=== PATIENT | male | born 1940 | race Caucasian/White ===

== ENCOUNTER 2017-09-25 17:16 | Emergency (ER) | payer MEDICARE ==
[~2017-09-25] VITALS: Ht 172.7 cm; Wt 95.0 kg
[~2017-09-25 17:16] MED LIST: ALPR.25 PO; CALC625 PO; COUM2TAB PO; ENOX100P SQ; LIPI20TA PO; LOTR5CAP2 PO; NEXI20CA PO; VIAG50TA PO
[2017-09-25 17:23] VITALS: BP 180/81; PULSE 66; RESP 16; TEMP 98.3; O2SAT 100
[2017-09-25 18:20] LABS: AUTOMATED NEUTROPHIL # 7.4 TH/MM3 (1.8-7.7); BASOPHIL % 0.3 % (0.0-2.0); EOSINOPHIL % 0.3 % (0.0-4.0); HEMATOCRIT 40.7 % (39.0-51.0); HEMOGLOBIN 13.2 GM/DL (13.0-17.0); LYMPH % 11.6 % (9.0-44.0); LYMPHOCYTE # 1.1 TH/MM3 (1.0-4.8); MEAN CELL VOLUME 76.1 FL (80.0-100.0); MEAN CORPUSCULAR HEMOGLOBIN 24.7 PG (27.0-34.0); MEAN CORPUSCULAR HGB CONC 32.5 % (32.0-36.0); MEAN PLATELET VOLUME 7.6 FL (7.0-11.0); MONO % 10.3 % (0.0-8.0); NEUT % 77.5 % (16.0-70.0); PLATELET COUNT 229 TH/MM3 (150-450); RED BLOOD COUNT 5.35 MIL/MM3 (4.50-5.90); RED CELL DISTRIBUTION WIDTH 19.2 % (11.6-17.2); WHITE BLOOD COUNT 9.6 TH/MM3 (4.0-11.0)
[2017-09-25 18:34] LABS: AST (GOT) 20 U/L (15-37); BICARBONATE 27.5 MEQ/L (21.0-32.0); BLOOD UREA NITROGEN 14 MG/DL (7-18); CALCIUM 8.9 MG/DL (8.5-10.1); CHLORIDE 100 MEQ/L (98-107); GLOMERULAR FILTRATION RATE 73 ML/MIN (>89); GLUCOSE,RANDOM 96 MG/DL (74-106); SODIUM (NA) 135 MEQ/L (136-145)
[2017-09-25 18:37] LABS: INTERNATIONAL NORMALIZED RATIO 2.1 RATIO; PROTHROMBIN TIME - PATIENT 21.7 SEC (9.8-11.6)
[2017-09-25 18:39] LABS: ALKALINE PHOSPHATASE 83 U/L (45-117); ALT (GPT) 20 U/L (12-78); TOTAL BILIRUBIN ADULT 1.5 MG/DL (0.2-1.0); TROPONIN I LESS THAN 0.02 NG/ML (0.02-0.05)
--- NOTE | 2017-09-25 18:46 | PD ---
HPI Chief Complaint: Fall Time Seen by Provider: 17:27 Travel History International Travel<30 days: No Contact w/Intl Traveler<30days: No Traveled to known affect area: No History of Present Illness HPI Patient is a 77-year-old male who comes in complaining of headache after a fall a week ago. He says he missed the last step on a ladder and he fell, falling backwards and hitting his head. He says he broke the wall with small. He says he has been having headache on the left side of his head since then. He does take Coumadin. His is concerned because he has been very tired for the past week as well. He denies any chest pain or shortness of breath. He denies dizziness, blurred vision, nausea or vomiting. Severity is mild to moderate. PFSH Past Medical History Hx Anticoagulant Therapy: Yes (WARFARIN ) Arthritis: No Blood Disorders: No Heart Rhythm Problems: No Cancer: Yes (SKIN X 2) Cardiovascular Problems: Yes (CHF ) High Cholesterol: Yes Chemotherapy: No Chest Pain: No Congestive Heart Failure: No Cerebrovascular Accident: No Diabetes: No Diminished Hearing: No Endocrine: No Gastrointestinal Disorders: Yes (GERD, ULCER HX) GERD: Yes Genitourinary: No Hepatitis: No Hiatal Hernia: No Hypertension: Yes Immune Disorder: No Musculoskeletal: Yes (CHRONIC BACK MUSCLE PAIN) Neurologic: No Psychiatric: No Reproductive: No Respiratory: No Myocardial Infarction: No Radiation Therapy: No Thyroid Disease: No Ulcer: No Past Surgical History Abdominal Surgery: Yes (UMBILICAL HERNIA REPAIR) AICD: No Appendectomy: No Arteriovenous Shunt: No Body Medical Devices: MITRAL & AORTIC VALVES Cardiac Surgery: Yes (AVR, MVR) Cholecystectomy: No Ear Surgery: No Endocrine Surgery: No Eye Surgery: No Genitourinary Surgery: No Gynecologic Surgery: No Insulin Pump: No Joint Replacement: No Oral Surgery: No Pacemaker: Yes (PLACED 09/14/14) Thoracic Surgery: Yes (see above ) Valve Replacement: Yes (X2 [facility]) Other Surgery: Yes Social History Alcohol Use: Yes Tobacco Use: No Substance Use: No Allergies-Medications (Allergen,Severity, Reaction): Coded Allergies: No Known Allergies (Unverified , 09/14/14) Reported Meds & Prescriptions Reported Meds & Active Scripts Active Reported Lovenox (Enoxaparin Sodium) 100 Mg/Ml Inj 100 Mg SQ BID Xanax 0.25 Mg (Alprazolam) Alprazolam 0.25 mg Tab 1 Tab PO DAILY PRN Fiber Con (Calcium Polycarbophil) 625 Mg Tab 625 Mg PO BID Viagra (Sildenafil Citrate) 50 Mg Tab 50 Mg PO DIRECTED Nexium (Esomeprazole Magnesium) Esomeprazole Magnesium 20 mg Cap 20 Mg PO DAILY Lipitor 20 Mg Tab (Atorvastatin Calcium) 20 Mg Tab 1 Tab PO DAILY Lotrel 5-10 mg (Amlodipine/benazepril 5-10 mg) 5 Mg/10 Mg Cap 1 Cap PO HS Coumadin 2 mg (Warfarin Sodium) Warfarin Sodium 2 mg Tab 7 Mg PO DAILY@1600 Review of Systems Except as stated in HPI: all other systems reviewed are Neg General / Constitutional: No: Fever, Chills Eyes: No: Blurred Vision HENT: Positive: Headaches Cardiovascular: No: Chest Pain or Discomfort Respiratory: No: Shortness of Breath Gastrointestinal: No: Nausea, Vomiting Musculoskeletal: No: Myalgias, Edema Skin: No Change in Pigmentation Neurologic: No: Weakness, Dizziness Physical Exam Narrative GENERAL: Awake and alert, in no acute distress. SKIN: Focused skin assessment warm/dry. No wounds or signs of infection. HEAD: Atraumatic. Normocephalic. EYES: Pupils equal and round and reactive. No scleral icterus. Extraocular movements intact. ENT: Mucous membranes pink and moist. NECK: Trachea midline. No JVD. CARDIOVASCULAR: Regular rate and rhythm. No murmur appreciated. RESPIRATORY: No accessory muscle use. Clear to auscultation. Breath sounds equal bilaterally. GASTROINTESTINAL: Abdomen soft, non-tender, nondistended. MUSCULOSKELETAL: No obvious deformities. No clubbing. No cyanosis. No edema. Tenderness to palpation of the lumbar spine. NEUROLOGICAL: Awake and alert. No obvious cranial nerve deficits. Motor grossly within normal limits. Normal speech. PSYCHIATRIC: Appropriate mood and affect; insight and judgment normal. Data Data Last Documented VS Vital Signs Date Time Temp Pulse Resp B/P (MAP) Pulse Ox O2 Delivery O2 Flow Rate FiO2 09/25/17 21:25 09/25/17 19:01 63 15 97 Room Air 09/25/17 17:23 98.3 Orders Orders Iv Access Insert/Monitor (09/25/17 17:38) Complete Blood Count With Diff (09/25/17 17:38) Comprehensive Metabolic Panel (09/25/17 17:38) Act Partial Throm Time (Ptt) (09/25/17 17:38) Prothrombin Time / Inr (Pt) (09/25/17 17:38) Troponin I (09/25/17 17:38) Electrocardiogram (09/25/17 ) Ct Brain W/O Iv Contrast(Rout) (09/25/17 ) Spine, Lumbar Comp W/Obliq (09/25/17 ) Chest, Single Ap (09/25/17 ) Urinalysis - C+S If Indicated (09/25/17 19:30) Ct Cerv Spine W/O Contrast (09/25/17 ) Ed Discharge Order (09/25/17 21:09) Labs Laboratory Tests Test 09/25/17 17:45 09/25/17 19:47 White Blood Count 9.6 TH/MM3 Red Blood Count 5.35 MIL/MM3 Hemoglobin 13.2 GM/DL Hematocrit 40.7 % Mean Corpuscular Volume 76.1 FL Mean Corpuscular Hemoglobin 24.7 PG Mean Corpuscular Hemoglobin Concent 32.5 % Red Cell Distribution Width 19.2 % Platelet Count 229 TH/MM3 Mean Platelet Volume 7.6 FL Neutrophils (%) (Auto) 77.5 % Lymphocytes (%) (Auto) 11.6 % Monocytes (%) (Auto) 10.3 % Eosinophils (%) (Auto) 0.3 % Basophils (%) (Auto) 0.3 % Neutrophils # (Auto) 7.4 TH/MM3 Lymphocytes # (Auto) 1.1 TH/MM3 Monocytes # (Auto) 1.0 TH/MM3 Eosinophils # (Auto) 0.0 TH/MM3 Basophils # (Auto) 0.0 TH/MM3 CBC Comment DIFF FINAL Differential Comment Prothrombin Time 21.7 SEC Prothromb Time International Ratio 2.1 RATIO Activated Partial Thromboplast Time 39.9 SEC Blood Urea Nitrogen 14 MG/DL Creatinine 1.00 MG/DL Random Glucose 96 MG/DL Total Protein 8.0 GM/DL Albumin 4.0 GM/DL Calcium Level 8.9 MG/DL Alkaline Phosphatase 83 U/L Aspartate Amino Transf (AST/SGOT) 20 U/L Alanine Aminotransferase (ALT/SGPT) 20 U/L Total Bilirubin 1.5 MG/DL Sodium Level 135 MEQ/L Potassium Level 4.3 MEQ/L Chloride Level 100 MEQ/L Carbon Dioxide Level 27.5 MEQ/L Anion Gap 8 MEQ/L Estimat Glomerular Filtration Rate 73 ML/MIN Troponin I LESS THAN 0.02 NG/ML Urine Color YELLOW Urine Turbidity CLEAR Urine pH 5.5 Urine Specific [place] 1.019 Urine Protein NEG mg/dL Urine Glucose (UA) NEG mg/dL Urine Ketones NEG mg/dL Urine Occult Blood TRACE Urine Nitrite NEG Urine Bilirubin NEG Urine Urobilinogen LESS THAN 2.0 MG/DL Urine Leukocyte Esterase TRACE Urine RBC 1 /hpf Urine Mucus FEW /lpf Microscopic Urinalysis Comment CULT NOT INDICATED MDM Medical Decision Making Medical Screen Exam Complete: Yes Emergency Medical Condition: Yes Medical Record Reviewed: Yes Interpretation(s) ECG shows a paced rhythm. Differential Diagnosis ICH versus concussion versus electrolyte abnormality versus dehydration Narrative Course Patient is a 77-year-old male who comes in complaining of headache and fatigue after a fall a week ago. Exam shows no neurologic abnormalities. IV established, labs sent. Labs show no acute abnormalities. CT head, C-spine performed. Lumbar x-ray performed. Signed out to Dr. Brandon to follow up imaging and disposition the patient. Vane Miller MD Sep 25, 2017 18:46
[2017-09-25 19:00] VITALS: BP 168/72; PULSE 62; RESP 15; O2SAT 97
--- NOTE | 2017-09-25 19:07 | RADRPT ---
EXAM DATE/TIME: 09/25/2017 18:30 [facility] COMPARISON: No previous studies available for comparison. INDICATIONS : Patient fell off ladder , hit head. RADIATION DOSE: 47.97 CTDIvol (mGy) MEDICAL HISTORY : Cardiovascular disease. Hypertension. SURGICAL HISTORY : Pacemaker. ENCOUNTER: Initial ACUITY: 4 - 6 days PAIN SCALE: 5/10 LOCATION: cranial TECHNIQUE: Multiple contiguous axial images were obtained of the head. Using automated exposure control and adj ustment of the mA and/or kV according to patient size, radiation dose was kept as low as reasonably a chievable to obtain optimal diagnostic quality images. DICOM format image data is available electro nically for review and comparison. FINDINGS: CEREBRUM: The ventricles are normal for age. No evidence of midline shift, mass lesion, hemorrhage or acute in farction. No extra-axial fluid collections are seen. POSTERIOR FOSSA: The cerebellum and brainstem are intact. The 4th ventricle is midline. The cerebellopontine angle i s unremarkable. EXTRACRANIAL: The visualized portion of the orbits is intact. SKULL: The calvaria is intact. No evidence of skull fracture. CONCLUSION: No acute intracranial abnormalities. Retention cyst right maxillary sinus. Mauro Valverde MD on September 25, 2017 at 19:04 Board Certified Radiologist. This report was verified electronically.
--- NOTE | 2017-09-25 19:14 | RADRPT ---
EXAM DATE/TIME: 09/25/2017 18:06 [facility] COMPARISON: CHEST SINGLE AP, September 14, 2014, 17:23. INDICATIONS : Shortness of breath. MEDICAL HISTORY : None. SURGICAL HISTORY : CABG. ENCOUNTER: Initial ACUITY: 1 day PAIN SCORE: 0/10 LOCATION: Bilateral chest FINDINGS: A single view of the chest demonstrates postoperative median sternotomy and aortic valve replacement. Pacer lead overlies right ventricle. Minimal basal atelectasis. No effusion. No pneumothorax. CONCLUSION: Minimal basal atelectasis. Cardiomegaly status post aortic valve replacement. Mauro Valverde MD on September 25, 2017 at 19:11 Board Certified Radiologist. This report was verified electronically.
--- NOTE | 2017-09-25 19:15 | RADRPT ---
EXAM DATE/TIME: 09/25/2017 18:09 [facility] COMPARISON: No previous studies available for comparison. INDICATIONS : Pain post fall. MEDICAL HISTORY : None. SURGICAL HISTORY : None. ENCOUNTER: Initial ACUITY: 1 day PAIN SCORE: 10/10 LOCATION: Lower back. FINDINGS: There are five non-rib bearing vertebral bodies. The vertebral bodies are in normal alignment withou t evidence of subluxation or scoliosis. The disc spaces are maintained. The posterior elements are intact without evidence of spondylolysis. The pedicles are intact. Bony mineralization is normal. No fracture is identified. CONCLUSION: 1. Mild degenerative disc disease and facet arthropathy. No acute bony abnormality. Mauro Valverde MD on September 25, 2017 at 19:12 Board Certified Radiologist. This report was verified electronically.
[2017-09-25 20:11] LABS: BILIRUBIN, URINE NEG (NEG); BLOOD, URINE TRACE (NEG); GLUCOSE,URINE NEG (NEG); KETONE, URINE NEG (NEG); MUCUS URINE FEW /lpf (OCC); NITRITE,URINE NEG (NEG); PH, URINE 5.5 (5.0-8.5); URINE COLOR YELLOW (YELLW/STRAW); URINE LEUKOCYTE ESTERASE TRACE (NEG)
--- NOTE | 2017-09-25 20:33 | RADRPT ---
EXAM DATE/TIME: 09/25/2017 19:57 [facility] COMPARISON: No previous studies available for comparison. INDICATIONS : Patient fell off ladder, weakness bilateral arms. RADIATION DOSE: 22.81 CTDIvol (mGy) MEDICAL HISTORY : Cardiovascular disease. Hypertension. SURGICAL HISTORY : Pacemaker. ENCOUNTER: Initial ACUITY: 4 - 6 days PAIN SCALE: 5/10 LOCATION: neck TECHNIQUE: Volumetric scanning of the cervical spine was performed. Multiplanar reconstructions in the sagittal, coronal and oblique axial planes were performed. Using automated exposure control and adjustment o f the mA and/or kV according to patient size, radiation dose was kept as low as reasonably achievable to obtain optimal diagnostic quality images. DICOM format image data is available electronically f or review and comparison. FINDINGS: VERTEBRAE: Normal vertebral body height. ALIGNMENT: No evidence of subluxation. C2-C3: The bony spinal canal is normal in size. No evidence of disc bulge or herniation. The neural forami na are bilaterally patent. C3-C4: The bony spinal canal is normal in size. No evidence of disc bulge or herniation. The neural forami na are bilaterally patent. C4-C5: The bony spinal canal is normal in size. No evidence of disc bulge or herniation. The neural forami na are bilaterally patent. C5-C6: The bony spinal canal is normal in size. No evidence of disc bulge or herniation. The neural forami na are bilaterally patent. C6-C7: The bony spinal canal is normal in size. No evidence of disc bulge or herniation. The neural forami na are bilaterally patent. C7-T1: The bony spinal canal is normal in size. No evidence of disc bulge or herniation. The neural forami na are bilaterally patent. CONCLUSION: 1. No acute intracranial abnormalities. Moderate degenerative disc disease and facet arthropathy. Mauro Valverde MD on September 25, 2017 at 20:29 Board Certified Radiologist. This report was verified electronically.
--- NOTE | 2017-09-25 21:09 | PD ---
Physical Exam Date Seen by Provider: Sep 25, 2017 Time Seen by Provider: 19:30 Narrative [pt signed out to me to review CT head , Negativ e for bleed and no obvious contusion , CT cervical ordered to ruleout disc herniation causing his arm weakness bilateral , and UA to rule out infectious source for weakness, all are normal and pt ready for discharge to follow up as an outpt . Dr Chris num,lisbeth given to pt and Data Data Last Documented VS Vital Signs Date Time Temp Pulse Resp B/P (MAP) Pulse Ox O2 Delivery O2 Flow Rate FiO2 09/25/17 21:25 09/25/17 19:01 63 15 97 Room Air 09/25/17 17:23 98.3 Orders Orders Iv Access Insert/Monitor (09/25/17 17:38) Complete Blood Count With Diff (09/25/17 17:38) Comprehensive Metabolic Panel (09/25/17 17:38) Act Partial Throm Time (Ptt) (09/25/17 17:38) Prothrombin Time / Inr (Pt) (09/25/17 17:38) Troponin I (09/25/17 17:38) Electrocardiogram (09/25/17 ) Ct Brain W/O Iv Contrast(Rout) (09/25/17 ) Spine, Lumbar Comp W/Obliq (09/25/17 ) Chest, Single Ap (09/25/17 ) Urinalysis - C+S If Indicated (09/25/17 19:30) Ct Cerv Spine W/O Contrast (09/25/17 ) Ed Discharge Order (09/25/17 21:09) Labs Laboratory Tests Test 09/25/17 17:45 09/25/17 19:47 White Blood Count 9.6 TH/MM3 Red Blood Count 5.35 MIL/MM3 Hemoglobin 13.2 GM/DL Hematocrit 40.7 % Mean Corpuscular Volume 76.1 FL Mean Corpuscular Hemoglobin 24.7 PG Mean Corpuscular Hemoglobin Concent 32.5 % Red Cell Distribution Width 19.2 % Platelet Count 229 TH/MM3 Mean Platelet Volume 7.6 FL Neutrophils (%) (Auto) 77.5 % Lymphocytes (%) (Auto) 11.6 % Monocytes (%) (Auto) 10.3 % Eosinophils (%) (Auto) 0.3 % Basophils (%) (Auto) 0.3 % Neutrophils # (Auto) 7.4 TH/MM3 Lymphocytes # (Auto) 1.1 TH/MM3 Monocytes # (Auto) 1.0 TH/MM3 Eosinophils # (Auto) 0.0 TH/MM3 Basophils # (Auto) 0.0 TH/MM3 CBC Comment DIFF FINAL Differential Comment Prothrombin Time 21.7 SEC Prothromb Time International Ratio 2.1 RATIO Activated Partial Thromboplast Time 39.9 SEC Blood Urea Nitrogen 14 MG/DL Creatinine 1.00 MG/DL Random Glucose 96 MG/DL Total Protein 8.0 GM/DL Albumin 4.0 GM/DL Calcium Level 8.9 MG/DL Alkaline Phosphatase 83 U/L Aspartate Amino Transf (AST/SGOT) 20 U/L Alanine Aminotransferase (ALT/SGPT) 20 U/L Total Bilirubin 1.5 MG/DL Sodium Level 135 MEQ/L Potassium Level 4.3 MEQ/L Chloride Level 100 MEQ/L Carbon Dioxide Level 27.5 MEQ/L Anion Gap 8 MEQ/L Estimat Glomerular Filtration Rate 73 ML/MIN Troponin I LESS THAN 0.02 NG/ML Urine Color YELLOW Urine Turbidity CLEAR Urine pH 5.5 Urine Specific Grace 1.019 Urine Protein NEG mg/dL Urine Glucose (UA) NEG mg/dL Urine Ketones NEG mg/dL Urine Occult Blood TRACE Urine Nitrite NEG Urine Bilirubin NEG Urine Urobilinogen LESS THAN 2.0 MG/DL Urine Leukocyte Esterase TRACE Urine RBC 1 /hpf Urine Mucus FEW /lpf Microscopic Urinalysis Comment CULT NOT INDICATED MDM Medical Record Reviewed: Yes Supervised Visit with BRITANY: No Diagnosis Primary Impression: Confusion Additional Impression: Post concussion syndrome Referrals: Waldo Chris MD Patient Instructions: General Instructions, Post Concussion Syndrome (ED) Disposition: 01 DISCHARGE HOME Condition: Good Loki Brandon MD Sep 25, 2017 21:09
--- NOTE | 2017-09-26 20:02 | EKG ---
Date Performed: 09/25/2017 Time Performed: 17:49:32 PTAGE: 77 years EKG: UNCERTAIN IRREGULAR RHYTHM ELECTRONIC VENTRICULAR PACEMAKER -- CONTOUR ANALYSIS BASED ON IN TRINSIC RHYTHM ANTEROSEPTAL MYOCARDIAL INFARCTION Since previous tracing, no significant change noted ABNORMAL ECG PREVIOUS TRACING : 09/14/2014 12.22 DOCTOR: Steve Ribeiro Interpretating Date/Time 09/26/2017 19:57:38
== END 2017-09-25 21:26 | disposition home or self-care (01) ==
LOC: NEPC 17:16
DX: F07.81 Postconcussional syndrome (principal); E78.00 Pure hypercholesterolemia, unspecified; K21.9 Gastro-esophageal reflux disease without esophagitis; I10 Essential (primary) hypertension; R94.31 Abnormal electrocardiogram [ECG] [EKG]; Z79.01 Long term (current) use of anticoagulants
CPT/HCPCS: 70450; 71045; 72110; 72125; 80053; 81001; 84484; 85025; 85610; 85730; 93005; 99285